=== PATIENT | male | born 1980 | race African-American/Black ===

== ENCOUNTER 2017-01-19 13:31 | Emergency (ER) | payer OTHER ==
[~2017-01-19] VITALS: Ht 182.9 cm; Wt 78.9 kg
[~2017-01-19 13:31] MED LIST: ALBUTEROL SULF8.5 GM INH; AUGMENTIN 875-1 EAC1 ORAL; AZITHROMYCIN250 MG ORAL; BACTRIM-DS1 EA PO; CEPHALEXIN500 MG PO; CLARITIN10 M2 ORAL; IBUPROFEN600 MG ORAL; NAPROSYN500 M1 ORAL; NKM; NORCO 5-325 TA1 EACH ORAL; SELENIUM SULFI180 ML TP; TYLENOL650 MG/20. ORAL
[2017-01-19] MEDS ORDERED: FLONASE ALLERG9.9 ML NS (14:30)
[2017-01-19] MEDS ORDERED: PSEUDOEPHEDRINE60 MG PO (14:30)
[2017-01-19] MEDS ORDERED: LEVAQUIN500 MG ORAL (14:30)
[2017-01-19 14:40] VITALS: BP 134/83
--- NOTE | 2017-01-19 21:12 | Emergency Room Report ---
History of Present Illness General Chief Complaint: Upper Respiratory Illness Source: Patient Present Illness HPI The patient is a 36-year-old male presenting with cough, nasal congestion, and facial pain which began one week prior. The patient states that he has had sinusitis in the past and this feels the same. Pain is described as an 8/10 dull ache to the left side of the face and is worse when he lowers his head and with touch. No radiating pain. The patient also admits to subjective fevers. The patient has not tried any medications yet for this. Patient denies other symptoms including N, V, chills, VEGA, dizziness, blurred vision, SOB Allergies: Coded Allergies: No Known Allergies (Unverified , 10/29/12) Patient History Past Medical History: see triage record Pertinent Family History: none Nursing Documentation-[facility] Past Medical History: No Stated History Review of Systems All Other Systems: negative except mentioned in HPI Physical Exam Vital Signs Date Time Temp Pulse Resp B/P Pulse Ox O2 Delivery O2 Flow Rate FiO2 01/19/17 14:08 98.2 99 18 125/75 96 Room Air Sp02 EP Interpretation: reviewed, normal General Appearance: no apparent distress, alert, GCS 15, non-toxic Head: normocephalic, atraumatic Eyes: bilateral eye PERRL, bilateral eye normal inspection ENT: normal pharynx, no angioedema, normal voice, uvula midline, nasal congestion, other - TTP over L maxillary sinus Neck: full range of motion, supple/symm/no masses Respiratory: chest non-tender, lungs clear, normal breath sounds, speaking full sentences Musculoskeletal: back normal, gait/station normal, normal range of motion, non- tender Neurologic: alert, oriented x3, responsive, motor strength/tone normal, sensory intact, speech normal Psychiatric: judgement/insight normal, memory normal, mood/affect normal, no suicidal/homicidal ideation Skin: normal color, no rash, warm/dry, well hydrated Lymphatic: no adenopathy Medical Decision Making PA Attestation Dr. Nielson is my supervising physician. Patient management was discussed with my supervising physician Diagnostic Impression: Primary Impression: Sinusitis, acute maxillary ER Course The patient is a 36-year-old male presenting with cough, nasal congestion, and facial pain which began one week prior. Differential diagnosis include but not limited to pharyngitis, sinusitis, AOM, bronchitis, PNA, elena's palsy PE: vitals WNL. HEENT: There is L sided maxillary TTP. + nasal congestion. No cervical lymphadenopathy. Otherwise unremarkable The patient is discharged home with a prescription for flonase, sudafed, and levaquin. ER precautions are given and the patient will follow up with PMD Last Vital Signs Date Time Temp Pulse Resp B/P Pulse Ox O2 Delivery O2 Flow Rate FiO2 01/19/17 14:40 97.9 89 14 134/83 97 Room Air Status: improved Disposition: HOME, SELF-CARE Condition: Improved Scripts Pseudoephedrine Hcl* (SUDAFED*) 60 Mg Tablet 60 MG PO Q6H, #20 TAB Prov: MEG GUTIERREZ.A. 01/19/17 Fluticasone Propionate (Flonase Allergy Relief) 9.9 Ml [place].susp 1 SPRAYS NS DAILY, #10 ML Prov: MEG GUTIERREZ P.A. 01/19/17 Levofloxacin* (LEVAQUIN*) 500 Mg Tablet 500 MG ORAL DAILY, #14 TAB Prov: MEG GUTIERREZ P.A. 01/19/17 Referrals: [facility],REFERRING (PCP) Patient Instructions: Sinusitis, Adult Additional Instructions: I discussed my findings with the patient. All questions and concerns have been answered. Treatment and medication compliance have been addressed. I advised the patient that they need to follow up with PMD in 3-5 days. Return to ED if pain remains or worsens, cough worsens or remains, you notice blood in your sputum, you notice wheezing, you experience a fever, or if needed for any reason. Patient verbalized understanding of discharge instructions. MEG GUTIERREZ Jan 19, 2017 21:12
== END 2017-01-19 14:40 | disposition home or self-care (01) ==
LOC: EMR 14:25
DX: J01.00 Acute maxillary sinusitis, unspecified (principal)
CPT/HCPCS: 99284

== ENCOUNTER 2017-03-02 15:13 | Emergency (ER) | payer OTHER ==
[~2017-03-02] VITALS: Ht 182.9 cm; Wt 79.4 kg
[~2017-03-02 15:13] MED LIST changes: +FLONASE ALLERG9.9 ML NS; +LEVAQUIN500 MG ORAL; +PSEUDOEPHEDRINE60 MG PO
[2017-03-02 15:42] VITALS: BP 132/79
[2017-03-02] MEDS ORDERED: NEXAFED30 MG ORAL (16:14)
[2017-03-02] MEDS ORDERED: AUGMENTIN 875-1 EAC1 ORAL (16:14)
--- NOTE | 2017-03-02 16:14 | Emergency Room Report ---
History of Present Illness General Chief Complaint: General Complaint Source: Patient Present Illness HPI 36-year-old male presents emergency department complaining of sinus pressure and tenderness rated as 8/10 in severity in addition to purulent nasal drainage bilaterally times one week. Patient denies fevers or chills. Patient reports sinus pressure headache. Patient denies dizziness, nausea, vomiting. Patient reports mild congestion. Patient denies cough or shortness of breath. denies hx of DM or immune compromise, denies rash. Denies CP, Palpitations, LOC, AMS, dizziness, Changes in Vision, Sensation, paresthesias, or a sudden severe headache. Allergies: Coded Allergies: No Known Allergies (Unverified , 10/29/12) Patient History Past Medical History: see triage record Past Surgical History: none Pertinent Family History: none Immunizations: UTD Reviewed Nursing Documentation: PMH: Agreed, PSxH: Agreed Nursing Documentation-PMH Past Medical History Deferred: Patient Unconscious Past Medical History: No Stated History Review of Systems All Other Systems: negative except mentioned in HPI Physical Exam Vital Signs Date Time Temp Pulse Resp B/P Pulse Ox O2 Delivery O2 Flow Rate FiO2 03/02/17 15:39 97.9 93 16 132/79 97 Room Air 03/02/17 15:42 2.0 Sp02 EP Interpretation: reviewed, normal General Appearance: no apparent distress, alert, GCS 15, non-toxic Head: normocephalic, atraumatic Eyes: bilateral eye PERRL, bilateral eye normal inspection ENT: hearing grossly normal, normal pharynx, no angioedema, normal voice, TMs + canals normal, uvula midline, nasal congestion - moderate nasal drainage noted , opaque in color. , other - frontal and maxillary sinus ttp, no rashes Neck: full range of motion, no meningismus, no bony tend, supple/symm/no masses Respiratory: chest non-tender, lungs clear, normal breath sounds, speaking full sentences Cardiovascular #1: regular rate, rhythm, no edema Musculoskeletal: back normal, gait/station normal, normal range of motion, non- tender Neurologic: alert, oriented x3, responsive, motor strength/tone normal, sensory intact, speech normal Psychiatric: judgement/insight normal, memory normal, mood/affect normal Skin: normal color, no rash, warm/dry, well hydrated Lymphatic: no adenopathy Medical Decision Making PA Attestation Dr. Westfall is my supervising Physician whom patient management has been discussed with. Diagnostic Impression: Primary Impression: Sinusitis Qualified Codes: J01.10 - Acute frontal sinusitis, unspecified ER Course 36-year-old male presents emergency department complaining of sinus pressure and tenderness rated as 8/10 in severity in addition to purulent nasal drainage bilaterally times one week. Patient denies fevers or chills. Patient reports sinus pressure headache. Patient denies dizziness, nausea, vomiting. Patient reports mild congestion. Patient denies cough or shortness of breath. denies hx of DM or immune compromise, denies rash. Ddx considered but are not limited to URI, pneumonia, PE, strep pharyngitis, meningitis. Vital signs: Pt. is afebrile, the remaining VS are WNL H&PE are most consistent with Acute Sinusitis - no meningeal signs, oropharynx is not involved. ORDERS: none required at this time, the diagnosis is clinical ED INTERVENTIONS: None required at this time. I do not suspect an emergent condition at this time. with current presentation pt. is stable for close outpatient follow up. d/w pt. treatment plan and to follow up with PCP, return to ED with worsening or new symptoms. DISCHARGE: At this time pt. is stable for d/c to home. Will provide printed patient care instructions, and any necessary prescriptions. Care plan and follow up instructions have been discussed with the patient prior to discharge. Last Vital Signs Date Time Temp Pulse Resp B/P Pulse Ox O2 Delivery O2 Flow Rate FiO2 03/02/17 15:42 16 132/79 97 Nasal Cannula 2.0 03/02/17 15:39 97.9 93 Disposition: HOME, SELF-CARE Condition: Stable Scripts Pseudoephedrine Hcl* (NEXAFED*) 30 Mg Tablet 30 MG ORAL Q6H Y for congestion for 4 Days, #16 TAB Prov: Karen Carrera P.A. 03/02/17 Amoxicillin/Potassium Clav 875-125* (AUGMENTIN 875-125 TABLET*) 1 Each Tablet 1 TAB ORAL TWICE A DAY for 7 Days, #14 TAB Prov: Karen Carrera P.A. 03/02/17 Patient Instructions: Sinusitis, Adult, [id number] Additional Instructions: Take medications as directed. Follow up with PCP in 3-5 days Return sooner to ED if new symptoms occur, or current symptoms become worse. - Please note that this Emergency Department Report was dictated using [employer] technology software, occasionally this can lead to erroneous entry secondary to interpretation by the dictation equipment. Karen Carrera March 02, 2017 16:14
[2017-03-02 16:20] VITALS: BP 132/79
== END 2017-03-02 16:45 | disposition home or self-care (01) ==
LOC: EMR 16:07
DX: J32.9 Chronic sinusitis, unspecified (principal)
CPT/HCPCS: 99284

== ENCOUNTER 2019-07-06 20:02 | Emergency (ER) | payer OTHER ==
[~2019-07-06] VITALS: Ht 180.3 cm; Wt 77.1 kg
[~2019-07-06 20:02] MED LIST changes: +NEXAFED30 MG ORAL
[2019-07-06 20:09] VITALS: BP 126/84
--- NOTE | 2019-07-06 20:09 | NUR ---
ED Nurse Note: Walk-in patient presents with complaints of left wrist pain after fall.
--- NOTE | 2019-07-06 20:58 | Emergency Room Report ---
History of Present Illness General Chief Complaint: Multiple Trauma/Fall Source: Patient Present Illness HPI This is a 38-year-old male who is right-hand dominant. He presents with left wrist pain. He tripped and fell on outstretched hand. Now unable to like pushing upward without having pain. Pain is 7 out of 10. This occurred last night. No nausea no vomiting. No other injury. Allergies: Coded Allergies: No Known Allergies (Unverified , 10/29/12) Patient History Past Medical History: see triage record, old chart reviewed Past Surgical History: none Pertinent Family History: none Social History: Denies: smoking Immunizations: other Reviewed Nursing Documentation: PMH: Agreed; PSxH: Agreed Nursing Documentation-PMH Past Medical History: No Stated History Review of Systems Eye: Denies: eye pain, blurred vision ENT: Denies: ear pain, nose congestion, throat swelling Respiratory: Denies: cough, shortness of breath Cardiovascular: Denies: chest pain, palpitations Gastrointestinal: Denies: abdominal pain, diarrhea, nausea, vomiting Musculoskeletal: Reports: joint pain; Denies: back pain Skin: Denies: rash Neurological: Denies: headache, numbness Endocrine: Denies: increased thirst, increased urine Hematologic/Lymphatic: Denies: easy bruising All Other Systems: negative except mentioned in HPI Physical Exam Vital Signs Date Time Temp Pulse Resp B/P (MAP) Pulse Ox O2 Delivery O2 Flow Rate FiO2 07/06/19 20:09 100 18 Room Air 07/06/19 20:09 97.7 126/84 98 Vitals normal Sp02 EP Interpretation: reviewed, normal General Appearance: well appearing, no apparent distress, alert Head: normocephalic, atraumatic Eyes: bilateral eye PERRL, bilateral eye EOMI ENT: hearing grossly normal, normal pharynx Neck: full range of motion, supple, no meningismus Respiratory: chest non-tender, lungs clear, normal breath sounds Cardiovascular #1: regular rate, rhythm, no murmur Gastrointestinal: normal bowel sounds, non tender, no mass, no organomegaly, no bruit, non-distended Musculoskeletal: back normal, gait/station normal, normal range of motion, tender - Left wrist: Tenderness over the distal radius/scaphoid area. Pulse normal. Sensation normal. Psychiatric: mood/affect normal Procedures Splinting Splinting : Consent: Verbal Location: Wrist left Pre-Made Type: velcro Splint: volar Pre-Proc Neuro Vasc Exam: normal Post-Proc Neuro Vasc Exam: normal Patient Tolerated: Well Complications: None Medical Decision Making Diagnostic Impression: Primary Impression: Left wrist sprain Qualified Codes: S63.502A - Unspecified sprain of left wrist, initial encounter ER Course Pt presents with wrist sprain. No evidence of any fracture dislocation. No evidence of any scaphoid fracture. Patient splinted and will be discharged home. Other X-Ray Diagnostic Results Other X-Ray Diagnostic Results : X-Ray ordered: Left wrist x-rays # of Views/Limited Vs Complete: 3 View Indication: Pain EP Interpretation: Yes Interpretation: no dislocation, no soft tissue swelling, no fractures Impression: No acute disease Electronically Signed by: Elijah Bess MD Last Vital Signs Date Time Temp Pulse Resp B/P (MAP) Pulse Ox O2 Delivery O2 Flow Rate FiO2 07/06/19 20:09 97.7 100 18 126/84 (98) 98 Room Air Status: improved Disposition: HOME, SELF-CARE Condition: Stable Scripts Ibuprofen* (MOTRIN*) 600 Mg Tablet 600 MG ORAL THREE TIMES A DAY, #30 TAB 0 Refills Prov: Elijah Bess MD 07/06/19 Additional Instructions: Elevate wrist. Ice pack to area. Follow-up your doctor in 7 days. Return if worse. Elijah Bess MD Jul 06, 2019 20:58
[2019-07-06] MEDS ORDERED: IBUPROFEN600 MG ORAL (21:19)
[2019-07-06 21:22] VITALS: BP 126/84
--- NOTE | 2019-07-06 21:22 | NUR ---
ED Nurse Note: Patient cleared for discharge, no s/s/ of acute distress. Patient verbalized understanding of discharge instructions, ID band removed. Patient departed with all belongings.
--- NOTE | 2019-07-07 14:27 | Diagnostic Imaging Report ---
Clinical Indication:Trauma, pain, status post fall Technique: 3 views of the left wrist Comparison: None Findings: No acute fractures. No dislocations. The joint spaces are preserved Impression: Negative
== END 2019-07-06 21:22 | disposition home or self-care (01) ==
LOC: EMR 21:10
DX: S63.502A Unspecified sprain of left wrist, initial encounter (principal); W01.0XXA Fall on same level from slipping, tripping and stumbling without subsequent striking against object, initial encounter; Y92.9 Unspecified place or not applicable
CPT/HCPCS: 29125; 99283